=== PATIENT | male | born 2000 | race Hispanic/Latino ===

== ENCOUNTER → 2024-11-02 14:28 | Outpatient (REF) | payer OTHER, SELFPAY ==
[2024-11-02 15:09] LABS: Hematocrit 45.5 % (39.0-52.0); Hemoglobin 16.3 g/dL (13.0-18.0); Mean Corp Hgb Conc. 35.8 g/dL (33.0-37.0); Mean Corpuscular Hgb 29.7 pg (27.0-31.0); Mean Corpuscular Volume 82.9 fL (80.0-94.0); Mean Platelet Volume 9.8 fL (7.4-10.4); Platelet Count 317 10^3/uL (130-400); Red Blood Cell Count 5.49 10^6/uL (4.70-6.10); Red Cell Dist. Width 11.9 % (11.5-14.5); White Blood Cell Count 9.4 10^3/uL (4.8-10.8)
[2024-11-02 15:26] LABS: ALT (SGPT) 12 U/L (0-50); AST (SGOT) 25 U/L (17-59); Alkaline Phosphatase 66 U/L (38-126); Blood Urea Nitrogen 15 mg/dl (9-20); Carbon Dioxide 29 mmol/L (22-30); Chloride 100 mmol/L (98-107); Glucose 75 mg/dl (70-99); Potassium 4.7 mmol/L (3.5-5.1); Sodium 138 mmol/L (135-145); Total Bilirubin 1.4 mg/dl (0.2-1.3); Total Protein 7.8 g/dl (6.3-8.2); eGFR > 60.00
[2024-11-02 15:42] LABS: Free T4 1.07 ng/dl (0.78-2.19)
[2024-11-02 15:55] LABS: TSH 1.27 uIU/ml (0.47-4.68)
== END ==
LOC: CLINIC 14:28
PROVIDERS: ATTENDING PHYSICIAN Nurse Practitioner Adult Health
DX: F41.1 Generalized anxiety disorder (principal); F41.0 Panic disorder [episodic paroxysmal anxiety]
CPT/HCPCS: 36415; 80053; 84439; 84443; 85027